=== PATIENT | female | born 1975 | race Caucasian/White ===

== ENCOUNTER → 2020-02-08 11:05 | Outpatient (CLI) | payer OTHER, SELFPAY ==
--- NOTE | ~2020-02-08 | US_ITS ---
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 COMPARISON: 07/07/2019 FINDINGS: The uterus measures 10.7 x 7.0 x 6.9 cm. There is a 5.8 x 5.6 cm complex, hypoechoic mass o f the uterine fundus which appears to represent an intramural fibroid. The endometrial complex measur es 7 mm. The right ovary measures 2.8 x 1.1 x 3.1 cm. The left ovary measures 3.7 x 2.7 x 3.5 cm. The re is normal vascular flow in the ovaries. There is no free fluid in the pelvis. IMPRESSION: 1. Intramural fibroid of the uterine fundus with increase in size. Reviewed, dictated and finalized at location A. [facility] [employer] [facility]
== END ==
PROVIDERS: PCP Family Medicine; Visit Provider Obstetrics & Gynecology
DX: D21.9 Benign neoplasm of connective and other soft tissue, unspecified (principal)
CPT/HCPCS: 76830; 76856

== ENCOUNTER 2020-02-08 11:43 | Outpatient (CLI) | payer OTHER, SELFPAY ==
[2020-02-08 12:10] LABS: Hematocrit 36.2 % (37.0-47.0); Hemoglobin 12.2 g/dL (12.0-15.0); Mean Corpuscular HGB Conc 33.7 g/dl (32-36); Mean Corpuscular Hemoglobin 30.7 pg (26-34); Mean Platelet Volume 9.1 fl (7.4-10.4); Platelet Count Result 314 k/mm3 (150-375); Red Blood Count 3.98 M/mm3 (4.2-5.4); Red Cell Distribution Width 12.1 % (11.5-14.5); White Blood Count 6.4 K/mm3 (4.5-10.0)
[2020-02-08 13:14] LABS: T4 Thyroxine 7.67 ug/dL (5.53-11.0)
[2020-02-11 13:58] LABS: FSH 2.1 mIU/mL (***); LH 0.8 mIU/mL (***)
== END 2020-02-08 11:44 | disposition home or self-care (01) ==
LOC: ANHLAB 11:45
PROVIDERS: PCP Family Medicine; Visit Provider Obstetrics & Gynecology
DX: N92.1 Excessive and frequent menstruation with irregular cycle (principal)
CPT/HCPCS: 36415; 83001; 83002; 84436; 84443; 85027

== ENCOUNTER 2022-07-06 09:44 | Outpatient (CLI) | payer OTHER, SELFPAY ==
[2022-07-06 10:32] LABS: Basophils Absolute Auto 0.1 K/mm3 (0.0-0.1); Basophils Percent Auto 0.8 % (0.2-1.2); Eosinophils Absolute Auto 0.1 K/mm3 (0-0.3); Eosinophils Percent Auto 2.1 % (0-4.4); Hematocrit 36.1 % (37.0-47.0); Hemoglobin 11.7 g/dL (12.0-15.0); Immature Granulocyte Absolute 0.02 K/mm3 (0.00-0.031); Immature Granulocyte Percent A 0.3 % (0-0.5); Lymphocytes Absolute Auto 1.86 K/mm3 (0.9-3.2); Lymphocytes Percent Auto 28.4 % (18.3-44.2); Mean Corpuscular HGB Conc 32.4 g/dl (32-36); Mean Corpuscular Hemoglobin 29.3 pg (26-34); Mean Corpuscular Volume 90.5 fl (80-100); Mean Platelet Volume 9.6 fl (7.4-10.4); Monocytes Absolute Auto 0.4 K/mm3 (0.1-0.6); Monocytes Percent Auto 6.7 % (2.6-8.5); Neutrophils Absolute Auto 4.1 K/mm3 (1.3-6.7); Neutrophils Percent Auto 61.7 % (45.5-73.1); Platelet Count Result 326 k/mm3 (150-375); Red Blood Count 3.99 M/mm3 (4.2-5.4); Red Cell Distribution Width 13.2 % (11.5-14.5); White Blood Count 6.6 K/mm3 (4.5-10.0)
[2022-07-06 10:55] LABS: Iron 63 ug/dL (37-170)
[2022-07-06 11:04] LABS: Beta HCG Quantitative < 2.39 mIU/ML
[2022-07-06 11:06] LABS: Percent Iron Saturation 15 % (20-50)
[2022-07-12 04:46] LABS: FSH 9.1 mIU/mL (***); Prolactin 8.5 ng/mL (***)
[2022-07-19 23:15] LABS: Estradiol, Ultrasensitive 67 pg/mL
== END 2022-07-06 09:45 | disposition home or self-care (01) ==
LOC: ANHLAB 09:45
PROVIDERS: PCP Family Medicine; Visit Provider Obstetrics & Gynecology
DX: D25.9 Leiomyoma of uterus, unspecified (principal); N81.4 Uterovaginal prolapse, unspecified; N92.1 Excessive and frequent menstruation with irregular cycle
CPT/HCPCS: 36415; 82670; 83001; 83540; 83550; 84146; 84443; 84702; 85025

== ENCOUNTER 2023-10-08 12:21 | Outpatient (CLI) | payer OTHER, SELFPAY ==
[2023-10-08 13:36] LABS: Influenza A QL RT-PCR Negative (Negative); Influenza B QL RT-PCR Negative (Negative); RSV RNA, RT-PCR Negative (Negative); SARS-CoV-2 RNA PCR Negative (Negative)
== END 2023-10-08 12:22 | disposition home or self-care (01) ==
LOC: ANHLAB 12:26
PROVIDERS: PCP Family Medicine; Visit Provider Family Medicine
DX: J06.9 Acute upper respiratory infection, unspecified (principal); Z20.822 Contact with and (suspected) exposure to COVID-19
CPT/HCPCS: 87637